=== PATIENT | female | born 1975 | race Caucasian/White ===

== ENCOUNTER 2022-04-05 15:33 | Outpatient (CLI) | payer SELFPAY ==
[2022-04-05 17:55] LABS: Chloride* 103 mmol/L (96-114); Potassium* 4.1 mmol/L (3.6-5.1); Sodium* 139 mmol/L (135-149)
[2022-04-05 17:57] LABS: Creatinine* 0.7 mg/dL (0.5-1.5); Estimated Glomerular Filt Rate 108 ml/min
[2022-04-05 17:58] LABS: Blood Urea Nitrogen* 13 mg/dL (5-24); Carbon Dioxide* 27 mmol/L (20-32); Glucose* 95 mg/dL (60-115)
[2022-04-05 17:59] LABS: Calcium* 9.3 mg/dL (8.4-10.6)
[2022-04-05 18:01] LABS: C Reactive Protein* 0.8 mg/dL (0.5-1.0)
[2022-04-07 23:31] LABS: Anti-Nuclear Ab(ANA)IgG ELISA Detected (None Detected)
[2022-04-08 00:55] LABS: Rheumatoid Factor <10 IU/mL (0-14)
[2022-04-09 15:24] LABS: ANA Pattern Speckled; Antinuclear AntibodyHEp-2 Detected (<1:80)
== END 2022-04-05 15:34 | disposition home or self-care (01) ==
PROVIDERS: PCP Family Medicine; Visit Provider Family Medicine
DX: M25.50 Pain in unspecified joint (principal); I10 Essential (primary) hypertension; R53.83 Other fatigue; F41.1 Generalized anxiety disorder; R63.8 Other symptoms and signs concerning food and fluid intake
CPT/HCPCS: 80048; 84443; 86039; 86140; 86431

== ENCOUNTER 2023-02-07 14:57 | Outpatient (CLI) | payer OTHER, SELFPAY | END 2023-02-07 14:58 | disposition home or self-care (01) | LOC: NFLDREF 14:58 | PROVIDERS: PCP Family Medicine; Visit Provider Family Medicine | DX: I10 Essential (primary) hypertension (principal) | CPT/HCPCS: 80048 ==

== ENCOUNTER 2024-08-30 08:26 | Outpatient (CLI) | payer OTHER, SELFPAY | END 2024-08-30 08:27 | disposition home or self-care (01) | PROVIDERS: PCP Family Medicine; Visit Provider Family Medicine | DX: I10 Essential (primary) hypertension (principal); R73.09 Other abnormal glucose | CPT/HCPCS: 80048; 80061 ==